=== PATIENT | male | born 2000 | race Caucasian/White ===

== ENCOUNTER 2024-10-10 01:14 | Emergency (ER) | payer SELFPAY ==
[2024-10-10 01:24] VITALS: BP 152/90
[2024-10-10] MEDS: AUGMENTIN 875 MG/125 MG 1 TABLET PO (04:54)
[2024-10-10] MEDS: TORADOL 60 MG IM (04:54)
[2024-10-10] MEDS: MARCAINE 0.5% W/EPI DENTAL CARTDRIDGE 1 CARTRIDGE INJ (04:56)
[2024-10-10 05:03] VITALS: BP 152/86
--- NOTE | 2024-10-10 05:20 | ED.GENMED ---
History of Present Illness
General
Chief Complaint: Dental Problem
Source: patient
Exam Limitations: none
Time Seen by Provider: 10/10/24 04:39
Nursing documentation reviewed up to this point in time: agreed with
History of Present Illness
History of Present Illness:
This is a 24-year-old male who has no significant past medical history. He follows regularly with dentist and has history of dental carry with repair right upper molar/right second molar. His dentist has discussed with him that he may eventually
need a root canal but for the most part tooth has not bothered him until more recently beginning 2 days ago he suffered a crack in his tooth and has had moderate pain over the past 2 days. He denies fever no chills, no sore throat, he has not
noticed facial swelling.
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
He has also been in contact with his dentist and has an appointment with his primary dentist for later today, October 10.
He has been taking ibuprofen intermittently, 400 mg with last dose around 10 PM.
He presents with persistent pain right upper posterior molar, inability to sleep.
He takes no medicines on a daily basis.
Past History
Past History
ED Past Medical History: None
ED Past Surgical History: None
Social History
Tobacco: Non-smoker
Alcohol: Occasional
Personal: Single
Living: with family
Employment: Employed
Family History
Family History: Other (Noncontributory)
Phy Exam
Physical Exam
Physical Exam:
GENERAL: Alert , in no apparent distress
EYE: anicteric
NECK: Supple, nontender, no meningismus, no significant adenopathy.
ENT: posterior pharynx is clear, oral mucosa is moist. TM clear b/l, nares patent. Right upper second molar has small avulsion medial aspect with mild erythema and mild bogginess to the palatal gingiva with moderate tenderness about this tooth.
There is very minimal soft tissue swelling of the right maxillary cheek. There is no erythema.
CARDIAC: Regular rate and rhythm. no murmur.
LUNGS: no acute respiratory distress
ABDOMEN: Soft, nondistended, without focal tenderness
NEUROLOGICAL: Alert and oriented x3, no focal neuro deficits. Gait is jackson and steady.
SKIN: Warm and dry, normal color, skin intact. No rash.
MUSCULOSKELETAL: No C/C/E. peripheral pulses are full and equal b/l. No palpable tenderness.
PSYCH: Normal and appropriate interaction.
Course
Orders/Labs/Results
Orders:
Orders
10/10/24 04:45
Bupivacaine HCl/Epinephrine [Marcaine 0.5% W/Epi Dental [place]] 1 cartridge INJ OR ONE
10/10/24 04:46
Amoxicillin 875 mg/Clav 125 mg [Augmentin 875 mg/125 mg] 1 tablet PO NOW STA
Bupivacaine HCl/Epinephrine [Marcaine 0.5% W/Epi Dental [place]] 1 cartridge .ROUTE .STK-MED ONE
Ketorolac [Toradol] 60 mg IM NOW STA
Vital Signs
Initial and Last Documented VS:
Initial Vital Signs
Temp Pulse Resp BP Pulse Ox
99.0 F 88 14 152/90 99
10/10/24 01:24 10/10/24 01:24 10/10/24 01:24 10/10/24 01:24 10/10/24 01:24
Last Documented Vital Signs
Temp Pulse Resp BP Pulse Ox
99.0 F 81 19 152/86 96
10/10/24 01:24 10/10/24 05:03 10/10/24 05:03 10/10/24 05:03 10/10/24 05:03
Procedures
Dentalgia
Dental Block: Nerve Block and Infiltration
Bupivacaine 0.5%/Epi Dental cartridge administered?: Yes
Tooth Number: 2
Abcess drained?: No
Pt tolerated procedure well w/ no immediate adverse effects?: Yes
MDM/Problems Addressed
Differential Diagnosis Includes:
Patient presents with focal dental pain with apparent dental abscess right upper second molar.
Will plan to initiate Augmentin for treatment of abscess.
Will plan for local supraperiosteal infiltration of bupivacaine for pain relief as well as an IM dose of Toradol.
Overall well in appearance.
Afebrile.
No history of immunocompromise.
At this point no indication for laboratory studies nor imaging.
Patient has a follow-up appointment with his dentist scheduled for later today.
*Pulse Oximetry
Patient hypoxic: no
*Critical Care Note
Total Time (30-74mins, 75-104mins- exclusive of procedures): Not Applicable
Update Note
Update Note:
05:35
1 syringe bupivacaine utilized for right upper molar supraperiosteal infiltration.
An additional 0.3 cc of bupivacaine infiltrated at right greater palatine foramen.
Patient tolerated procedure well. No complications.
Resting comfortably with moderate relief of dental pain.
He has been started on Augmentin for early dental abscess.
A prescription for ibuprofen will be provided for as needed pain as well as a few Vicodin for as needed moderate pain.
Follow-up with dentist today as already planned.
ED Attending Note
-
Portions of this chart may have been created with voice recognition software.� Occasional wrong word or��sound alike� substitutions may have occurred due to the inherent limitations of voice recognition software.
Discharge Plan
Departure
Patient Disposition: Home (Routine Discharge)
Date of Disposition: 10/10/24
Time of Disposition: 05:40
Patient with high blood pressure during this ER visit?: No
Condition: Good
Discharge Problem:
Abscess, dental
Instructions: Tooth Abscess (DC), Dental Pain (DC)
Prescriptions:
New
ibuprofen 600 mg tablet
600 mg PO QID PRN (Reason: fever or pain) Qty: 20 0RF
amoxicillin-pot clavulanate 875-125 mg tablet
1 tab PO BID Qty: 14 0RF
hydrocodone-acetaminophen 5-325 mg tablet
1 tab PO BID PRN (Reason: Pain) Qty: 7 0RF
Referrals:
UNKNOWN - PT DOES,NOT KNOW [Family Provider] -
Activity Restrictions/Additional Instructions:
Follow-up with your dentist today as already scheduled.
Interventions
Interventions:
*Risk Screen - Suicide Last Done: 10/10/24 01:24
*General Assessment Last Done: 10/10/24 03:05
*Neglect/Abuse Screening Last Done: 10/10/24 03:05
ED- Fall Risk Assessment Last Done: 10/10/24 03:06
*ED COVID-19 Vaccine History Last Done: 10/10/24 03:05
Discharge Date and Time
Print Language: TURKISH
== END 2024-10-10 05:47 | disposition home or self-care (01) ==
LOC: EMR 01:14
PROVIDERS: EMERGENCY PHYSICIAN Emergency Medicine
DX: K04.7 Periapical abscess without sinus (principal)
CPT/HCPCS: 64400; 96372; 99284